=== PATIENT | female | born 1950 | race Caucasian/White ===

== ENCOUNTER → 2024-03-08 07:22 | Outpatient (REF) | payer MEDICARE, OTHER, SELFPAY | LOC: HWWDC 07:22 | PROVIDERS: ATTENDING PHYSICIAN Internal Medicine | DX: Z12.31 Encounter for screening mammogram for malignant neoplasm of breast (principal) | CPT/HCPCS: 77063; 77067 ==

== ENCOUNTER 2025-02-02 06:07 | Inpatient (IN) | payer MEDICARE, OTHER, SELFPAY ==
[2025-02-01 23:08] VITALS: BP 124/67
[2025-02-02 01:34] VITALS: BP 120/74
[2025-02-02 01:37] VITALS: BMI 28.0
[2025-02-02] MEDS: ZOFRAN 4 MG IV (01:51)
[2025-02-02] MEDS: DILAUDID 0.5 MG IV (01:51)
[2025-02-02] MEDS: OMNIPAQUE 50 ML PO (01:52)
[2025-02-02] MEDS: NSS 1000 IV ×2 (01:53→04:57)
[2025-02-02 02:00] VITALS: BP 120/73
[2025-02-02 02:00] LABS: Hematocrit 38.1 % (37.0-47.0); Hemoglobin 12.6 g/dL (12.0-16.0); Mean Corp Hgb Conc. 33.1 g/dL (33.0-37.0); Mean Corpuscular Volume 90.7 fL (81.0-99.0); Nucleated Red Blood Cells % 0 %; Platelet Count 218 10^3/uL (130-400); Red Cell Dist. Width 13.2 % (11.5-14.5)
[2025-02-02 02:29] LABS: Troponin I 0.023 ng/ml
--- NOTE | 2025-02-02 02:40 | ED.GENMED ---
History of Present Illness
General
Chief Complaint: Abdominal Symptoms
Source: patient and family
Exam Limitations: none
Time Seen by Provider: 02/02/25 01:31
Nursing documentation reviewed up to this point in time: agreed with
History of Present Illness
History of Present Illness:
74-year-old female history of GERD, 3 C-sections, appendectomy presents with abdominal pain after eating lunch she had some soup, 1 glass of wine vomited a few times did not eat dinner, no chest pain or shortness of breath no change in her bowel
habits no history of bowel obstructions
Past History
Past History
ED Past Medical History: GERD
ED Past Surgical History: Appendectomy and
Social History
Tobacco: Non-smoker
Alcohol: Occasional
Drug: None
Personal:
Living: with family
Employment: Retired
Review of Systems
Review of Systems
All Other Systems: Not applicable
Constitutional: Denies fever or fatigue
Cardiac: Denies chest pain
ABD/GI: Reports abdominal pain, nausea, vomiting and pain; Denies diarrhea or constipated
: Reports no symptoms
Phy Exam
Physical Exam
Physical Exam:
Physical Exam
General: no apparent distress, not acutely ill
Neck: No jaundice
Heart: s1/s2 regular rate and rhythm, no murmur. equal radial pulses.
Lungs: no acute respiratory distress. clear bilaterally
Abdomen: Soft mild epigastric tenderness
Neuro: alert and oriented. no focal neurological deficits
Skin: no rash
Psychiatric: well kept. interactive and cooperative
Extremities: no edema.
Course
Orders/Labs/Results
Orders:
Orders
02/01/25 23:44
IV Insert/Care/Rem.- Treatment PRN
Straight cath- Treatment ONCE
Complete Blood Count/With Diff Urgent
Urinalysis Reflex To Culture Urgent
Date Specimen was Collected: 02/01/25
Time Specimen was Collected: 23:44
02/02/25 01:38
CT Abd/pel W Iv And Oral Contr Urgent
Comment:
Reason For Exam: vomitign
HYDROmorphone [Dilaudid] 0.5 mg IV NOW STA
Iohexol [Omnipaque] See Protocol PO NOW STA
Ondansetron Injectable [Zofran] 4 mg IV NOW STA
02/02/25 01:44
Troponin I Urgent
02/02/25 01:52
0.9% Sodium Chloride 1000 ml [Nss] 1,000 ml IV BOLUS
02/02/25 02:30
Comprehensive Metabolic Panel Routine
Comment: REDRAW
Lipase Routine
02/02/25 02:39
Electrocardiogram (*1) Urgent
Reason for Study: Abdominal Pain
EKG- Treatment ONCE
02/02/25 03:20
Urine Microscopic Reflex Cult Urgent
02/02/25 04:30
Troponin I Urgent
Abnormal Lab Results
02/02/25 02/02/25 02/02/25
01:44 02:30 03:20
Absolute Neuts (auto) 7.0 H 10^3/uL
(1.4-6.5)
Neutrophils % 76.7 H %
(42.2-75.2)
Lymphocytes % 16.0 L %
(20.5-51.1)
Glucose 124 H mg/dl
(70-99)
AST 68 H U/L
(14-36)
ALT 48 H U/L
(0-35)
Total Protein 6.1 L g/dl
(6.3-8.2)
Lipase 3528 H* U/L
(23-300)
Ur Occult Blood Reflex 3+ A
(Negative)
Urine Albumin (Reflex) 1+ A
(Neg - Trace)
02/02/25 01:44
02/02/25 02:30
Vital Signs
Initial and Last Documented VS:
Initial Vital Signs
Temp Pulse Resp BP Pulse Ox
98.5 F 76 18 124/67 93
02/01/25 23:08 02/01/25 23:08 02/01/25 23:08 02/01/25 23:08 02/01/25 23:08
Last Documented Vital Signs
Temp Pulse Resp BP Pulse Ox
98.5 F 53 14 120/73 95
02/01/25 23:08 02/02/25 02:15 02/02/25 02:15 02/02/25 02:00 02/02/25 02:42
MDM/Problems Addressed
Differential Diagnosis Includes:
SBO gastritis duodenitis colitis
MDM/Problems Addressed:
Vomiting
*Radiology
Radiology exam reviewed: other (At this time)
*Pulse Oximetry
SaO2: 95
Oxygen Mode of Delivery: Room air
Patient hypoxic: no
*EKG
Interpreted by ED Provider?: Yes
Interpretation: normal
Comparison EKG: no comparison EKG present
Heart Rate: 74
Ischemia: T-wave inversion
*Chief Customer Officer Interpretation
Rate: normal
Interpretation: normal
Heart Rate: 78
Rhythm: sinus
*Critical Care Note
Total Time (30-74mins, 75-104mins- exclusive of procedures): Not Applicable
Update Note
Update Note:
3:30 AM EKG noted T wave inversions anteriorly troponin noted no old EKGs in our system will repeat her troponin in a few hours, also check CT scan with IV and p.o. contrast
Lipase noted history appears consistent with pancreatitis
ED Attending Note
-
Portions of this chart may have been created with voice recognition software.� Occasional wrong word or��sound alike� substitutions may have occurred due to the inherent limitations of voice recognition software.
Discharge Plan
Departure
Patient Disposition: Admit
Date of Disposition: 02/02/25
Time of Disposition: 03:48
Admit to: Telemetry
Presentation/result/management discussed w/ accepting MD/DO: Hospitalist
Patient with high blood pressure during this ER visit?: No
Condition: Fair
Covid-19: Not Applicable
Discharge Problem:
Acute pancreatitis
Prescriptions:
No Action
methylprednisolone [Medrol (Dave)] 4 mg tablets,dose pack
See Rx Instructions .ROUTE .COMPLEX Qty: 21 0RF
Rx Instructions:
orally per package directions
ondansetron 4 mg Tablet,Disintegrating
4 mg PO BIDPRN PRN (Reason: nausea/vomiting) Qty: 10 0RF
oxycodone 5 mg tablet
5 mg PO Q8H PRN (Reason: Pain) Qty: 14 0RF
Interventions
Interventions:
*Risk Screen - Suicide Last Done: 02/01/25 23:08
*General Assessment Last Done: 02/01/25 23:08
*Neglect/Abuse Screening Last Done: 02/01/25 23:08
*ED- Fall Risk Assessment Last Done: 02/02/25 01:37
*ED COVID-19 Vaccine History Last Done: 02/02/25 01:37
*ED Influenza Vaccine History Last Done: 02/02/25 01:37
DG-Rltndh-Xqjiawlqqg Assessment Last Done: 02/02/25 01:35
Discharge Date and Time
Print Language: FAROESE
[2025-02-02 03:00] VITALS: BP 132/63
[2025-02-02 03:31] LABS: ALT (SGPT) 48 U/L (0-35); AST (SGOT) 68 U/L (14-36); Albumin 3.8 g/dl (3.5-5.0); Alkaline Phosphatase 87 U/L (38-126); Blood Urea Nitrogen 17 mg/dl (7-17); Calcium 8.6 mg/dl (8.4-10.2); Carbon Dioxide 27 mmol/L (22-30); Chloride 106 mmol/L (98-107); Estimated Creatinine Clearance 73 ml/min; Glucose 124 mg/dl (70-99); Potassium 3.9 mmol/L (3.5-5.1); Sodium 140 mmol/L (135-145); Total Protein 6.1 g/dl (6.3-8.2); eGFR > 60.00
[2025-02-02 03:31] LABS: Urine Character Clear (Clear)
[2025-02-02 03:46] LABS: Lipase 3528 U/L (23-300)
[2025-02-02 04:55] LABS: Urine Squamous Cell >30 /LPF (Few)
[2025-02-02 05:03] LABS: Urine Red Blood Cell 60-70 /HPF (0-2)
[2025-02-02 05:04] LABS: Urine White Cell 0-2 /HPF (0-5)
[2025-02-02 05:06] VITALS: BP 142/67
--- NOTE | 2025-02-02 05:25 | HPS.HSE ---
Family Physician
-
Family Physician: Kathleen Lewis
Chief Complaint
-
Abd Pain, N/V
History of Present Illness
Patient is a 74y F with PMH significant for GERD, dry eye and OAB who presents to ED complaining of abdominal pain and N/V. Patient states that she has had intermittent episodes of upper abdominal discomfort for the past few years. Typically
these episodes are triggered by alcohol intake or 'rich foods'. Previous symptoms have all been fairly mild / self-limited. Patient states that she developed similar pain this afternoon after lunch. She did have wine with lunch. Her symptoms
increased throughout the afternoon and she developed N/V as well - which is unusual. She denies any back pain / flank pain. No fevers / chills. No diarrhea, bloody stools, etc.
Patient presented to the ED for further evaluation and treatment.
Medical History
Past Medical History
Past Medical History: Reports Other
Additional Past Medical History:
GERD
Dry Eye
OAB
Past Surgical History: Reports Other
Additional Past Surgical History:
x 3
Appendectomy
Social History
Tobacco: Non-smoker
Alcohol: Occasional (2-3 times per week.)
Drug: None
Family History
Family History: Not pertinent
Allergies / Home Medications
Allergies reflects when Allergies were last updated in [facility].
Home Medications with original date entered in [facility]
Allergy/Medication List:
Allergies
Allergy/AdvReac Type Severity Reaction Status Date / Time
No Known Allergies Allergy Unverified 01/11/23 17:54
Home Medications
cholecalciferol (vitamin D3) 25 mcg (1,000 unit) tablet 25 mcg PO DAILY 02/02/25
cyclosporine 0.05 % eye drops in a dropperette (Restasis) 1 drp ophthalmic (eye) BID 02/02/25
famotidine 20 mg tablet 20 mg PO BID 02/02/25
mirabegron 50 mg tablet,extended release 24 hr (Myrbetriq) 50 mg PO DAILY 02/02/25
vit C 250 mg-vit E 90 mg-zinc 40 mg-copper 1 [id number] capsule (PreserVision AREDS-2) 1 tab PO BID 02/02/25
Review of Systems
-
History Source: Patient
A 12 point ROS was completed and negative except as noted: Yes
Constitutional: Denies Fever or Chills
Respiratory: Denies Cough or Trouble Breathing
Cardiac: Denies Chest Pain or Palpitations
Abdomen/GI: Reports Abdominal Pain, Nausea and Vomiting; Denies Diarrhea, Bloody Stools or Black Stools
: Denies Dysuria, Frequency or Flank Pain
Musculoskeletal: Denies Joint Pain or Edema
Neurological: Denies Dizzy or Headache
Physical Exam
Vital Signs
Vital Signs
Temp Pulse Resp BP Pulse Ox
98.5 F 53 14 120/73 95
02/01/25 23:08 02/02/25 02:15 02/02/25 02:15 02/02/25 02:00 02/02/25 02:42
Physical Exam
General: Other (74y F in no acute distress.)
HEENT: Moist mucous membranes
Respiratory: Clear; No Wheezes, Rales or Rhonchi
Cardiac: S1/S2 and Regular Rhythm; No Murmur
GI: Soft, Non Distended, Normal Bowel Sounds and Other (Mild epigastric tenderness. No rebound / guarding.)
Musculoskeletal: No Clubbing, No Cyanosis and No Edema
Neuro: AO x 3
Laboratory Results
-
02/02/25 01:44
02/02/25 02:30
Laboratory Results
Total Bilirubin 0.6 mg/dl (0.2-1.3) 02/02/25 02:30
AST 68 U/L (14-36) H 02/02/25 02:30
ALT 48 U/L (0-35) H 02/02/25 02:30
Alkaline Phosphatase 87 U/L (38-126) 02/02/25 02:30
Troponin I 0.023 ng/ml 02/02/25 01:44
Lipase 3528 U/L (23-300) H* 02/02/25 02:30
Impression/Plan
-
A/P: Patient is a 74y F with PMH significant for GERD who presents to ED complaining of abdominal pain and N/V.
Acute Pancreatitis
- Admit for further evaluation and treatment.
- Clear liquid diet as tolerated.
- Pain control, antiemetics, IVFs, etc.
- GI evaluation given initial diagnosed episode (though having mild / similar symptoms x years).
- Counseled re: alcohol avoidance.
- Follow for clinical improvement.
Abnormal GB on CT
- CT shows borderline GB wall thickening.
- Check abd US for completeness to rule out biliary disease / cholecystitis as alternate etiology of current symptoms (though less likely).
GERD
- Continue famotidine. Add PPI for now.
Dry Eye
- Continue Restasis.
DVT Prophylaxis: SCDs
Code Status: Full
[2025-02-02 05:46] LABS: Troponin I < 0.012 ng/ml
[2025-02-02 06:00] VITALS: BP 135/68
[2025-02-02 07:37] VITALS: BP 129/64
[2025-02-02] MEDS: PEPCID 20 MG PO (08:21)
[2025-02-02] MEDS: PROTONIX 40 MG PO (08:21)
[2025-02-02] MEDS: LR 1000 IV (08:24)
--- NOTE | 2025-02-02 09:39 | W.PN.HOSP.TC ---
Addendum entered and electronically signed by Jaime Muse MD 02/02/25 15:11:
Attending�addendum:
I saw and evaluated the patient. I reviewed the resident�s note and agree with findings and plan as documented in the resident�s note.��patient seen and examined at bedside, denies any chest pain or shortness of breath, no abdominal pain, no nausea,
no vomiting, no diarrhea or constipation.
Physical�exam:
GENERAL : Patient is awake, alert, oriented x3
HEENT: Nonicteric sclerae, PERRLA, EOMI. Oropharynx clear. Moist mucous membranes. Conjunctivae appear well perfused.
CHEST: Chest wall is nontender.
HEART: Regular rate and rhythm without murmurs.
LUNGS: Clear to auscultation bilaterally.
ABDOMEN: Soft, positive bowel sounds, nontender, no organomegaly.
RECTAL: Deferred.
MUSCLES/EXTREMITIES: No abnormal range of motion, no swelling.SKIN: No rash, no excessive bruising, petechiae, or purpura.
NEUROLOGIC: Cranial nerves II-XII intact without motor/sensory deficit.
�
Assessment/plan:
Acute pancreatitis.
Possible secondary to alcohol use
Reviewed CT finding with the patient.
Patient tolerating diet.
Will be discharged home today
CODE STATUS: Full code
Diet: Low-fat diet
Disposition: Discharge home
�
Total time spent on today�s encounter was 51 minutes which included time spent in counseling the patient/family regarding diagnosis and treatment plan as listed above, goals of care, and symptom management. Case was discussed with nursing staff,
specialists, and care coordinators/case management. All labs and imaging personally reviewed by me. Remainder the time spent in detailed review of previous records, lab data, imaging, and other medical provider documentation.
Original Note:
Today's Communication/Plan
-
.
Assessment / Plan
Assessment / Plan
Suzanne Leiva is a 74F w/ PMHx of GERD, OAB, dry eyes who presented to the ED complaining of abdominal pain, nausea, and vomiting. Chronic history of intermittent episodes of upper abdominal discomfort over the past 2 years. Normally exacerbated by
alcohol intake or rich foods, particularly when on vacation. Previous symptoms self-limited. Similar pain yesterday with lunch (1 glass of wine). Afebrile with stable vital signs in the ED, CBC unremarkable, BMP unremarkable, AST ALT elevated
68/48, lipase 3528. Initial troponin 0.023, trended down to undetectable. CT abdomen pelvis with no evidence for calcified gallstones but there is gallbladder wall thickening versus pericholecystic edema. No biliary ductal dilatation. No comment
on pancreas.
1. Acute Pancreatitis
- Patient tolerating CLD without issue; advance to LR diet and if tolerated, can go home
- IVF w/ LR and NS s/p 2L
- Clinical improvement s/p IVF, pain control/antiemetics
- Can follow up with GI outpatient
- Alcohol cessation counseling
2. GB Wall Thickening on CT
- US ordered, but patient without lab abnormalities, WBC, fever, or clinical signs of GB disease
- Can consider repeat outpatient imaging
3. GERD
- Continue H2RA
- Continue PPI
4. Dry Eyes
- Continue Restasis
DVT: SCDs
Diet: LowRes
Code: FULL
Anticipated Discharge: Today
Subjective/Interval History
-
Date of Service: February 02, 2025
Suzanne Leiva is a 74F w/ PMHx of GERD, OAB, dry eyes who presented to the ED complaining of abdominal pain, nausea, and vomiting. Chronic history of intermittent episodes of upper abdominal discomfort over the past 2 years. Normally exacerbated by
alcohol intake or rich foods, particularly when on vacation. Previous symptoms self-limited. Similar pain yesterday with lunch (1 glass of wine). Afebrile with stable vital signs in the ED, CBC unremarkable, BMP unremarkable, AST ALT elevated
68/48, lipase 3528. Initial troponin 0.023, trended down to undetectable. CT abdomen pelvis with no evidence for calcified gallstones but there is gallbladder wall thickening versus pericholecystic edema. No biliary ductal dilatation. No comment
on pancreas.
Patient endorses feeling well and is without any acute complaints this AM.
Objective Data
-
Labs:
Laboratory Results
02/02/25 02/02/25
01:44 02:30
WBC 9.1
Hgb 12.6
Hct 38.1
Plt Count 218
Sodium Cancelled 140
Potassium Cancelled 3.9
Chloride Cancelled 106
Carbon Dioxide Cancelled 27
BUN Cancelled 17
Creatinine Cancelled 0.6
Glucose Cancelled 124 H
Calcium Cancelled 8.6
Total Bilirubin Cancelled 0.6
AST Cancelled 68 H
ALT Cancelled 48 H
Alkaline Phosphatase Cancelled 87
Vital Signs:
Vital Signs
Temp Pulse Resp BP Pulse Ox
97.5 F 51 18 129/64 98
02/02/25 07:37 02/02/25 07:37 02/02/25 07:37 02/02/25 07:37 02/02/25 07:37
Review of Systems
-
History Source: Patient
All other systems: Reviewed and negative
Physical Exam
-
General: Well Developed, Well Nourished, No Apparent Distress and Comfortable
HEENT: Normocephalic, Atraumatic and Anicteric
Respiratory: Clear to Auscultation and Non Labored Respirations
Cardiac: Regular Rhythm and S1/S2
GI: Soft, Nontender, Nondistended and Normal Bowel Sounds
Musculoskeletal: No Clubbing, No Cyanosis and No Edema
Skin: Warm
Neuro: Awake, Alert and Oriented
Psych: Calm
Data Reviewed
-
CT Scan: Report Reviewed by me and Discussed with Patient
Labs: Labs Reviewed by me and Discussed with Patient
--- NOTE | 2025-02-02 10:41 | CM ---
IA completed. IMM given in ED. Retired elementary manager of school. Lives in independent living at [facility]. Lives with spouse in single story home with no steps at the entrance.Independent with ADLs and IADLs. requires some assistance;
uses a walker needs help outside of the home. No hx of HH, snf, or Home O2, DME: has a rolling walker at home but does not need it. . Has grab bars in the shower area. No insecurities identified. Confirmed PCP, Rx, insurance and drug coverage.
Requires IV pain medication and IVFs. Will watch for DC instructions
Plan: Home, no needs
--- NOTE | 2025-02-02 10:49 | CM ---
IA completed. IMM completed and placed in chart. Lives with Son, Dtr-in-law,grandson and grandson's fiance in a 2 story home with one step at the entrance to the home. Has wheelchair ramp. Confirmed PCP, RX insurance and drug coverage.
PCP: Franchesca Kelley
RX: [facility] [place] [place] [address]
Full BR is on the 2nd floor. Pt has a stair glide but cannot currently use it due to not being able to bend her leg. Has been unable to use the second floor for about a year.She has a caregiver in the home to assist her with bathing (private pay).
DME: rolling walker, SPC (not in use),Wheelchair, BR grab bars.
Has 3L n/c home O2. Has a concentrator and portable tank at home. Vendor is unknown.
Has hx of HH with [facility] with nursing, and PT.
Hx of SNF at [facility] ( this would be an acceptable SNF at discharge if needed.) Was also at [place] and is not willing to go back there.
--- NOTE | 2025-02-02 17:12 | W.DCSUMMARY ---
Addendum entered and electronically signed by Jaime Muse MD 02/02/25 17:47:
Attending�addendum:
I saw and evaluated the patient. I reviewed the resident�s note and agree with findings and plan as documented in the resident�s note.��patient seen and examined at bedside, denies any chest pain or shortness of breath, no abdominal pain, no nausea,
no vomiting, no diarrhea or constipation.
Physical�exam:
GENERAL : Patient is awake, alert, oriented x3
HEENT: Nonicteric sclerae, PERRLA, EOMI. Oropharynx clear. Moist mucous membranes. Conjunctivae appear well perfused.
CHEST: Chest wall is nontender.
HEART: Regular rate and rhythm without murmurs.
LUNGS: Clear to auscultation bilaterally.
ABDOMEN: Soft, positive bowel sounds, nontender, no organomegaly.
RECTAL: Deferred.
MUSCLES/EXTREMITIES: No abnormal range of motion, no swelling.SKIN: No rash, no excessive bruising, petechiae, or purpura.
NEUROLOGIC: Cranial nerves II-XII intact without motor/sensory deficit.
�
Assessment/plan:
Acute pancreatitis.
Possible secondary to alcohol use
Reviewed CT finding with the patient.
Patient tolerating diet.
Will be discharged home today
CODE STATUS: Full code
Diet: Low-fat diet
Disposition: Discharge home
�
Total time spent on today�s encounter was 40 minutes which included time spent in counseling the patient/family regarding diagnosis and treatment plan as listed above, goals of care, and symptom management. Case was discussed with nursing staff,
specialists, and care coordinators/case management. All labs and imaging personally reviewed by me. Remainder the time spent in detailed review of previous records, lab data, imaging, and other medical provider documentation.
Original Note:
Documented by User: Damien Medrano DO, Resident 02/02/25 17:38
Discharge Summary
Discharge Data
Date of Admission: 02/02/25
Date of Discharge: 02/02/25
Total time spent discharging patient (in min): 45
-
Pending Results: No
Hospital Course
Suzanne Leiva is a 74 year old female with a past medical history of GERD, dry eyes, and overactive bladder who presented to the Emergency Department at [facility] on the very drywall installer of 02/02/25 with abdominal pain, nausea and vomiting.
HISTORY OF PRESENT ILLNESS
Patient stated that she has had intermittent episodes of upper abdominal discomfort for the past few years and that typically these episodes are triggered by alcohol intake or 'rich foods'. Previous symptoms have all been fairly mild / self-limite
however the patient states developed similar pain this afternoon after lunch and a glass of wine. These symptoms increased throughout the afternoon and she developed nausea and vomiting as well. The pain was located in the epigastrium. She otherwise
denied any back/flank pain, fevers, chills, diarrhea, or bloody stools.
ED COURSE
Upon evaluation in the emergency department, the patient was afebrile with stable vital signs and a physical exam only positive for some mild epigastric tenderness, but an otherwise benign abdominal exam. Labs showed a mildly elevated AST and ALT at
69 and 48 with a lipase of 3528. A CT of the abdomen was obtained which showed did elicit a comment on any abnormalities of the pancreas. There was, however, an equivocal finding of a mild gallbladder wall thickening that could have been
pericholecystic edema. There was no biliary ductal dilation. The patient was admitted for acute pancreatitis and started on intravenous fluids, pain control and antiemetics. incidentally, the patient's initial troponin was mildly elevated at 0.023,
but repeat testing revealed an undetectable level.
HOSPITAL COURSE
The patient received 2 Liters of intravenous fluids and had a return of appetite within hours of admission. The patient's diet was increased to a low-fat solid diet, and the patient tolerated with without nausea or pain. A gastroenterology consult
was called due to the chronic nature of the patient's pain, but it was agreed that evaluation could be achieved in the outpatient setting. Although an ultrasound of the right upper quadrant was ordered to investigate the equivocal gallbladder
findings on the CT scan, it was also agreed that this could be accomplished in the outpatient setting given a benign physical exam, unremarkable labs, and normal vital signs throughout admission. The patient was discharged home on the afternoon of
02/02/25 on a low fat diet and was instructed to follow up with her primary care provider and the ladle repairer Dr. Bowden for further workup.
Discharge Plan
-
Patient Disposition: Home (Routine Discharge)
Discharge Diagnosis/Procedures: Acute Pancreatitis
Alcohol Use
Questionable Right Upper Quadrant Ultrasound Findings
History of GERD
History of Dry Eyes
Condition: Fair
Diet: Low Fat
Activity: As tolerated
Others Tests: Right Upper Quadrant Ultrasound
Activity Restrictions/Additional Instructions:
Avoid alcohol.
Referrals:
Titus Bowden MD [Active, Gastroenterology]
Referral Note: For follow up of recurrent abdominal pain.
Kathleen Lewis PA [Family Provider, General] - in less than 1 week
Prescriptions:
Continued
famotidine 20 mg Tablet
20 mg PO BID
cyclosporine [Restasis] 0.05 % dropperette
1 drp ophthalmic (eye) BID
cholecalciferol (vitamin D3) 25 mcg (1,000 unit) Tablet
25 mcg PO DAILY
mirabegron [Myrbetriq] 50 mg tablet extended release 24 hr
50 mg PO DAILY
PreserVision AREDS-2 250-90-40-1 mg Capsule
1 tab PO BID
Discharge Orders:
Discharge Patient (As Directed); Ordered 02/02/25
Ordered By: Damien Medrano
Discharge Date and Time
Discharge Date/Time: 02/02/25 16:32
Print Language: AMERICAN

Documented by User: Jaime Muse MD 02/02/25 17:46
Discharge Summary
Discharge Data
Date of Admission: 02/02/25
Date of Discharge: 02/02/25
Discharge Plan
-
Patient Disposition: Home (Routine Discharge)
Discharge Diagnosis/Procedures: Acute Pancreatitis
Alcohol Use
Questionable Right Upper Quadrant Ultrasound Findings
History of GERD
History of Dry Eyes
Condition: Fair
Diet: Low Fat
Activity: As tolerated
Others Tests: Right Upper Quadrant Ultrasound
Activity Restrictions/Additional Instructions:
Avoid alcohol.
Referrals:
Titus Bowden MD [Active, Gastroenterology]
Referral Note: For follow up of recurrent abdominal pain.
Kathleen Lewis PA [Family Provider, General] - in less than 1 week
Prescriptions:
Continued
famotidine 20 mg Tablet
20 mg PO BID
cyclosporine [Restasis] 0.05 % dropperette
1 drp ophthalmic (eye) BID
cholecalciferol (vitamin D3) 25 mcg (1,000 unit) Tablet
25 mcg PO DAILY
mirabegron [Myrbetriq] 50 mg tablet extended release 24 hr
50 mg PO DAILY
PreserVision AREDS-2 250-90-40-1 mg Capsule
1 tab PO BID
Discharge Orders:
Discharge Patient (As Directed); Ordered 02/02/25
Ordered By: Damien Medrano
Discharge Date and Time
Discharge Date/Time: 02/02/25 16:32
Print Language: AMERICAN
== END 2025-02-02 16:32 | disposition home or self-care (01) | DRG 440 ==
LOC: 4 EAST ACU 06:07
PROVIDERS: ADMITTING PHYSICIAN Hospitalist; ATTENDING PHYSICIAN General Practice; EMERGENCY PHYSICIAN Emergency Medicine; FAMILY PHYSICIAN Physician Assistant Medical
DX: K85.90 Acute pancreatitis without necrosis or infection, unspecified (principal); K21.9 Gastro-esophageal reflux disease without esophagitis
CPT/HCPCS: 74177; 80053; 81003; 81015; 83690; 84484; 85025; 93005; 96361; 96374; 96375; 99285; Q9967